=== PATIENT | female | born 2000 | race Two or more races ===

== ENCOUNTER 2024-04-08 13:21 | Inpatient (IN) | payer OTHER ==
[~2024-04-08] VITALS: Ht 157.5 cm; Wt 68.0 kg
[2024-04-08] MEDS ORDERED: AUGMENTIN XR 11 EACH PO (14:22)
[2024-04-08] MEDS ORDERED: PIPERACILLIN/TAZOBACTAM SODIUM 3.375 GM VIAL IV SCH (14:35)
[2024-04-08] MEDS ORDERED: KETOROLAC TROMETHAMINE 60 MG VIAL IM ONE (14:45)
[2024-04-08] MEDS ORDERED: 0.9 % SODIUM CHLORIDE 1,000 ML IV ONE (14:45)
[2024-04-08] MEDS ORDERED: FAMOtidine 10 MG/ML (4ML VIAL) IV ONE (14:45)
[2024-04-08 15:53] LABS: HEMATOCRIT 38.1 % (36.0-45.00); HEMOGLOBIN 12.8 g/dL (12.0-15.00); MEAN CELL VOLUME 86.1 fL (80.00-100.00); MEAN CORPUSCULAR HEMOGLOBIN 28.9 pg (27.00-32.0); MEAN CORPUSCULAR HGB CONC 33.6 g/dl (32.0-36.0); PLATELET COUNT 344 K/uL (150-450); RED BLOOD COUNT 4.42 M/uL (4.00-6.00)
[2024-04-08 15:54] LABS: RED CELL DISTRIBUTION WIDTH 16.8 % (11.5-14.5)
[2024-04-08 16:32] LABS: ALBUMIN 3.7 gm/dL (3.4-5.0); ALKALINE PHOSPHATASE 110 U/L (50-136); ALT/SGPT 17 U/L (12-78); ANION GAP 11 (10.0-20.0); AST/SGOT 11 U/L (15-37); BILIRUBIN TOTAL 0.22 mg/dL (0.3-1.2); BLOOD UREA NITROGEN 16 mg/dL (7-18); BUN CREA RATIO 17 (7.0-25.0); CALCIUM 9.8 mg/dL (8.5-10.1); CARBON DIOXIDE 27 mEq/L (21-32); CHLORIDE 105 mmol/L (98-107); CREATININE SERUM 0.95 mg/dL (0.55-1.02); GFR 72.27; GLOBULINA 5.1 G/DL (2.4-3.5); GLUCOSE FASTING 85 mg/dL (65-100); OSMOLALITY SERUM 278 MOSM/KG (275-295); POTASSIUM 3.97 mEq/L (3.5-5.1); SODIUM 139 mmol/L (136-145); TOTAL PROTEIN 8.8 gm/dL (6.4-8.2)
[2024-04-08 16:51] LABS: C-REACTIVE PROTEIN 4.89 MG/DL (0.00-0.29); HCG QUANTITATIVE < 1 mUI/mL (1-3)
[2024-04-08 16:57] LABS: ERYTHROCYTE SEDIMENTATION RATE 114 mm/hr
[2024-04-08] MEDS ORDERED: 0.9 % SODIUM CHLORIDE 1,000 ML IV SCH (20:30)
[2024-04-08] MEDS ORDERED: ONDANSETRON HCL 4 MG in DEXTROSE 5 % IN WATER 50 ML IV PRN (20:30)
[2024-04-08] MEDS ORDERED: ACETAMINOPHEN 500 MG GEL..CAP PO PRN (20:30)
[2024-04-08] MEDS ORDERED: FAMOTIDINE/PF 20 MG in 0.9 % SODIUM CHLORIDE 8 ML IV PUSH SCH (21:00)
[2024-04-08 23:56] VITALS: BP 116/78; O2SAT 100
[2024-04-09] MEDS ORDERED: PIPERACILLIN/TAZOBACTAM SODIUM 3.375 GM in 0.9 % SODIUM CHLORIDE 100 ML IV SCH
[2024-04-09] MEDS ORDERED: MORPHINE SULFATE 2 MG/ML CARTRIDGE IV SCH
[2024-04-09 01:45] VITALS: BP 99/69; O2SAT 99
[2024-04-09 05:23] LABS: HEMATOCRIT 34.6 % (36.0-45.00); HEMOGLOBIN 11.6 g/dL (12.0-15.00); MEAN CELL VOLUME 85.5 fL (80.00-100.00); MEAN CORPUSCULAR HEMOGLOBIN 28.7 pg (27.00-32.0); MEAN CORPUSCULAR HGB CONC 33.6 g/dl (32.0-36.0); PLATELET COUNT 304 K/uL (150-450); RED BLOOD COUNT 4.04 M/uL (4.00-6.00); RED CELL DISTRIBUTION WIDTH 16.8 % (11.5-14.5)
[2024-04-09 05:37] LABS: PROTHROMBIN TIME 10.9 SECONDS (9.0-11.5)
[2024-04-09 05:42] LABS: ALKALINE PHOSPHATASE 94 U/L (50-136); ALT/SGPT 13 U/L (12-78); ANION GAP 12 (10.0-20.0); AST/SGOT 8 U/L (15-37); BILIRUBIN TOTAL 0.24 mg/dL (0.3-1.2); BILIRUBIN,CONJUGATED < 0.10 mg/dL (0.0-0.2); BILIRUBIN,UNCONJUGATED 0.14 mg/dL (0.0-0.6); BLOOD UREA NITROGEN 20 mg/dL (7-18); BUN CREA RATIO 21 (7.0-25.0); CALCIUM 8.5 mg/dL (8.5-10.1); CARBON DIOXIDE 26 mEq/L (21-32); CHLORIDE 111 mmol/L (98-107); CHOL HDL RATIO 3.7 (0-5.0); CHOLESTEROL 146 mg/dL (0-200); CREATININE SERUM 0.94 mg/dL (0.55-1.02); GFR 73.16; GLOBULINA 3.8 G/DL (2.4-3.5); GLUCOSE FASTING 91 mg/dL (65-100); HDL 40 mg/dl (40-60); LDL 95 mg/dl (0-130); OSMOLALITY SERUM 289 MOSM/KG (275-295); POTASSIUM 4.57 mEq/L (3.5-5.1); SODIUM 144 mmol/L (136-145); TOTAL PROTEIN 6.8 gm/dL (6.4-8.2); TRIGLYCERIDES 53 mg/dL (0-150); VLDL 10 (0-39)
[2024-04-09 08:00] VITALS: BP 111/71; O2SAT 99
[2024-04-09 13:33] LABS: URINE APPEARANCE Cloudy; URINE BILIRRUBIN Negative (NEGATIVE); URINE BLOOD Moderate; URINE COLOR Yellow; URINE GLUCOSE Negative (NEGATIVE); URINE KETONE Negative (NEGATIVE); URINE LEUKOCYTE Trace; URINE NITRATE Negative; URINE PROTEIN Negative (NEGATIVE); URINE UROBILINOGEN 0.2 E.U./dl
[2024-04-09 13:36] LABS: URINE BACTERIA 46.6 uL (0.0-1933); URINE RBC 19.3 uL (0.0-20.8); URINE WBC 34.6 uL (0.0-23.2)
[2024-04-09 14:25] LABS: URINE EPITHELIAL CELLS > 201.7 uL (0.0-38.8)
[2024-04-09 16:33] VITALS: BP 99/57; O2SAT 99
[2024-04-09] MEDS ORDERED: LINEZOLID 600 MG TABLET PO SCH (21:00)
[2024-04-10 01:19] VITALS: BP 114/75; O2SAT 98
[2024-04-10 08:01] VITALS: BP 127/79; O2SAT 96
[2024-04-10] MEDS ORDERED: ONDANSETRON HCL 2 MG/ML VIAL IV PRN (18:30)
[2024-04-10] MEDS ORDERED: 0.9 % SODIUM CHLORIDE 1,000 ML IV SCH (18:30)
[2024-04-10] MEDS ORDERED: KETOROLAC TROMETHAMINE 30 MG VIAL IV PRN (18:45)
[2024-04-10] MEDS ORDERED: HYDROGEN PEROXIDE 118 ML SOLUTION TOP ONE (19:00)
[2024-04-10] MEDS ORDERED: MORPHINE SULFATE 4 MG/ML VIAL IV ONE ×3 (20:05→21:05)
[2024-04-11 00:02] VITALS: BP 124/73
[2024-04-11 06:29] LABS: HEMATOCRIT 33.4 % (36.0-45.00); HEMOGLOBIN 11.1 g/dL (12.0-15.00); MEAN CELL VOLUME 85.4 fL (80.00-100.00); MEAN CORPUSCULAR HEMOGLOBIN 28.4 pg (27.00-32.0); MEAN CORPUSCULAR HGB CONC 33.3 g/dl (32.0-36.0); PLATELET COUNT 285 K/uL (150-450); RED BLOOD COUNT 3.92 M/uL (4.00-6.00)
[2024-04-11 06:58] LABS: CREATININE SERUM 0.96 mg/dL (0.55-1.02); GFR 71.4; POTASSIUM 4.64 mEq/L (3.5-5.1)
[2024-04-11 08:09] VITALS: BP 117/78; O2SAT 97
[2024-04-11] MEDS ORDERED: KETOROLAC TROMETHAMINE 30 MG VIAL IM NR (08:15)
[2024-04-11] MEDS ORDERED: CEFAZOLIN SODIUM 2,000 MG in 0.9 % SODIUM CHLORIDE 100 ML IV SCH (17:00)
[2024-04-11 17:20] VITALS: BP 146/96
[2024-04-12 00:05] VITALS: BP 141/96; O2SAT 98
[2024-04-12] MEDS ORDERED: AMLODIPINE BESYLATE 2.5 MG TABLET PO SCH (09:00)
[2024-04-12 09:40] VITALS: BP 142/87; O2SAT 98
[2024-04-12 16:23] VITALS: BP 144/79
[2024-04-12] MEDS ORDERED: FAMOtidine 20 MG TABLET PO SCH (21:00)
[2024-04-13 01:21] VITALS: BP 120/81; O2SAT 96
[2024-04-13 08:23] VITALS: BP 136/85; O2SAT 97
[2024-04-13 08:24] VITALS: BP 136/85; O2SAT 98
[2024-04-13 16:36] VITALS: BP 132/83
[2024-04-14 01:47] VITALS: BP 128/80; O2SAT 98
[2024-04-14 10:36] VITALS: BP 121/82; O2SAT 98
[2024-04-14 14:49] LABS: HEMATOCRIT 37.1 % (36.0-45.00); HEMOGLOBIN 12.7 g/dL (12.0-15.00); MEAN CELL VOLUME 84.8 fL (80.00-100.00); MEAN CORPUSCULAR HEMOGLOBIN 28.9 pg (27.00-32.0); MEAN CORPUSCULAR HGB CONC 34.1 g/dl (32.0-36.0); PLATELET COUNT 397 K/uL (150-450); RED BLOOD COUNT 4.38 M/uL (4.00-6.00)
[2024-04-14 15:26] LABS: ALBUMIN 3.3 gm/dL (3.4-5.0); BILIRUBIN TOTAL 0.19 mg/dL (0.3-1.2); CALCIUM 9.5 mg/dL (8.5-10.1); CREATININE SERUM 1.13 mg/dL (0.55-1.02); GFR 59.16; GLOBULINA 3.9 G/DL (2.4-3.5); POTASSIUM 4.5 mEq/L (3.5-5.1); TOTAL PROTEIN 7.2 gm/dL (6.4-8.2)
[2024-04-14 16:59] VITALS: BP 153/88
[2024-04-15] VITALS: BP 119/81
[2024-04-15 08:40] VITALS: BP 125/76; O2SAT 99
== END 2024-04-15 10:32 | disposition home or self-care (01) | DRG 572 ==
LOC: ER 13:23 → MEDI 22:01
PROVIDERS: General Practice; Surgery; ADMIT Internal Medicine; ATTEND Internal Medicine
PROC: 0H9T0ZZ Drainage of Right Breast, Open Approach (ICD-10-PCS; 2024-04-10)
PROC: 0JB60ZZ Excision of Chest Subcutaneous Tissue and Fascia, Open Approach (ICD-10-PCS; principal; 2024-04-10 16:30)
PROC: BH40ZZZ Ultrasonography of Right Breast (ICD-10-PCS; 2024-04-14)
DX: N61.1 Abscess of the breast and nipple (principal); B95.61 Methicillin susceptible Staphylococcus aureus infection as the cause of diseases classified elsewhere; Z71.89 Other specified counseling

== ENCOUNTER → 2025-06-10 | Emergency (ER) | payer OTHER ==
[~2025-06-10] VITALS: Ht 157.5 cm; Wt 68.0 kg
[~2025-06-10] MED LIST: AUGMENTIN XR 11 EACH PO
== END | disposition left against medical advice (07) ==
LOC: ER 20:39
DX: Z53.21 Procedure and treatment not carried out due to patient leaving prior to being seen by health care provider (principal)